=== PATIENT | female | born 1990 | race Caucasian/White ===

== ENCOUNTER 2018-10-16 20:32 | Emergency (ER) | payer OTHER ==
[2018-10-16] MEDS: HYDROCODONE/APAP (5/325) TAB PO (22:44)
== END 2018-10-17 01:03 | disposition home or self-care (01) ==
LOC: FTE 10-17 01:03
DX: S82.831A Other fracture of upper and lower end of right fibula, initial encounter for closed fracture (principal); X58.XXXA Exposure to other specified factors, initial encounter; Y92.9 Unspecified place or not applicable
CPT/HCPCS: 29515; 73610-RT; 99283-25